=== PATIENT | male | born 1965 | race Caucasian/White ===

== ENCOUNTER 2016-10-25 07:32 | Day surgery (SDC) | payer BC ==
[~2016-10-25 07:32] MED LIST: Buffered Lidocaine 0.9% SYRIN* 5 ML/SYR SYRINGE INTRADERM ONE; Famotidine IV* 10 MG/ML 2 ML (20 mg) IV ONE
[2016-10-25] MEDS ORDERED: Famotidine IV* 10 MG/ML 2 ML (20 mg) ONE ×2 (07:52→08:01)
[2016-10-25] MEDS ORDERED: ceFAZolin 2 GM PREMIX(*) 0 GM/0 ML BAG IVPB ONE (07:52)
[2016-10-25] MEDS ORDERED: ceFAZolin 2 GM PREMIX(*) 2 GM/50 ML BAG IVPB ONE (08:01)
[2016-10-25] MEDS ORDERED: Buffered Lidocaine 0.9% SYRIN* 5 ML/SYR SYRINGE ONE (08:01)
[2016-10-25] MEDS ORDERED: Bupivacaine 0.5% W/EPI SDV* 10 ML VIAL INJ ONE (08:03)
[2016-10-25] MEDS ORDERED: EPINEPHrine AMP 1 MG/ML ONE (08:03)
[2016-10-25] MEDS ORDERED: fentaNYL* 50 MCG/ML 2 ML VIAL (100 MCG VIAL) ONE ×2 (09:17→10:46)
[2016-10-25] MEDS ORDERED: Midazolam* 1 MG/ML 5 ML VIAL (5 MG) ONE (09:17)
[2016-10-25] MEDS ORDERED: DiMENhydriNATE IV* 50 MG/ML VIAL IV PUSH PRN (10:33)
[2016-10-25] MEDS ORDERED: HYDROmorphone* 1 MG/ML 1 ML SYR IV PRN (10:33)
[2016-10-25] MEDS ORDERED: Ketorolac INJ* 30 MG/ML 1 ML VIAL ONE (10:34)
[2016-10-25] MEDS ORDERED: Propofol* 10 MG/ML 20 ML BTL IV PUSH ONE (10:34)
[2016-10-25] MEDS ORDERED: Lidocaine 2% PF * 5 ML VIAL ONE (10:34)
[2016-10-25] MEDS ORDERED: Ondansetron INJ* 2 MG/ML VIAL ONE (10:34)
[2016-10-25] MEDS ORDERED: Dexamethasone IV* 4 MG/ML 1 ML (4 MG) ONE (10:34)
[2016-10-25] MEDS ORDERED: oxyCODONE/Acetamin 5/325 MG* TAB ONE ×2 (11:37→12:29)
[2016-10-25] MEDS: oxyCODONE/Acetamin 5/325 MG* TAB PO PRN ×2 (11:39→12:29)
[2016-10-25 12:43] VITALS: BP 150/98
--- NOTE | 2016-10-26 14:41 | OP ---
OPERATIVE REPORT: DATE OF OPERATION: 10/25/16 DATE OF : 69 SURGEON: Cam Cunningham MD LICENSED RETAIL SUPERVISOR: LISS Ackerman Physician certified first assistant was required throughout the length of the procedure for positioning. ANESTHESIOLOGIST: Kemi Brice MD ANESTHESIA: General anesthesia. PRE-OP DIAGNOSES: 1. Right knee medial meniscus tear, displaced. 2. Right knee medial compartment osteoarthritis, mild. POST-OP DIAGNOSES: 1. Right knee medial meniscus tear, displaced. 2. Right knee medial compartment osteoarthritis, mild. OPERATIVE PROCEDURE: 1. Arthroscopic right knee partial medial meniscectomy. 2. Arthroscopic right knee chondroplasty, medial femoral condyle. 3. Right knee arthroscopic synovectomy, anterior. 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 In June of 2016, his right knee pain worsened significantly, specifically medially, and he also started having concomitant effusions. The patient had mechanical symptoms including catching and locking of the knee as well as effusions for the past 4 months. 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 He also used [employer] ice machine. He took Advil over the counter. He had a cortisone injection in August of 2016, which improved his knee pain for only 1 week. On 10/17/16, Dr. Alisa Stanley aspirated the right knee and removed 85 cc of yellow joint fluid. Prior to the aspiration, he could not flex his knee past 90 degrees of flexion. After the aspiration, while the fluid about the knee had decreased significantly, the patient's catching and locking increased significantly and every time his knee was in 30 degrees of flexion, it would lock for seconds. The patient presented to me already having had an MRI study having been done. My evaluation of the MRI demonstrated a likely displaced flap of medial meniscus into the intercondylar notch posterior to the PCL. I spoke to Radiology and they concurred with my assessment. The patient opted for operative management. We discussed in the office benefits , risks, and potential complications of procedure. I gave my cell phone number. We talked specifically that given his amount of joint space narrowing on x-ray and some degenerative changes in the medial compartment on the MRI, I could not guarantee that his knee would be pain free after the surgery. Given the mechanical symptoms, I did not do a Lyme disease workup or rheumatologic workup, but the patient seemed very interested in testing for Lyme disease when he texted me one day preoperative, so I told him that we would obtain blood for Lyme disease testing intraoperatively. He agreed to that, thought that was a good idea. ANTIBIOSIS: 2 g Ancef IV. IV FLUIDS: 650 cc crystalloid. TOURNIQUET TIME: 29 minutes at 300 mmHg. COMPLICATIONS: None. SPECIMEN: None. IMPLANTS: None. DESCRIPTION OF PROCEDURE: Preoperative written consent was obtained. Operative extremity was marked in preoperative holding. The patient was taken back to the operating room, placed supine on the operating room table. The proximal right thigh was placed in a tourniquet, but was not elevated. The distal thigh was placed in a circumferential thigh joe. The table was elevated and the foot of the table was dropped. Right lower extremity was prepped and draped. A surgical time-out was performed. The Esmarch was applied and the tourniquet was elevated to 300 mmHg. Anterolateral knee arthroscopy portal was established using standard technique. There was a huge release of joint fluid, not surprising, given the patient's large effusion. This was perfectly clear yellow normal-appearing joint fluid. I started diagnostic arthroscope. In the patellofemoral compartment, there was no obvious articular cartilage damage in the patellofemoral compartment. There was, however, much synovitis anteriorly appreciated in this compartment. We then moved down to the medial compartment. Immediately, there was significant damage to the medial femoral condyle, medial tibial plateau, articular cartilage surfaces visible. This rated from grade 2 to grade 4. Looking at the medial meniscus, there were much degenerative changes throughout the posterior body and posterior horn of the medial meniscus. There was significant fraying to the inner surface of the meniscus there. No obvious flap at first. Established an anteromedial knee arthroscopy portal under direct visualization. Introduced a shaver and shaved some frayed edges at the inner surface of the meniscus. Then, probed around the meniscus, specifically about the root. I pulled a large flap of meniscus that had been in the intercondylar notch posterior to the PCL into the medial compartment. I took several photographs of it. Debrided that with arthroscopic shaver. Debrided the frayed edges of intact meniscus posterior horn and body. Never used any biters during this case. Debrided the meniscus minimally back to a stable healthier rim of tissue. Probed superiorly and inferiorly and there were no other displaced fragments of meniscus. I worked through the medial portal and then I worked through the lateral portal. There were grade 2 and 3 cartilage changes throughout the medial femoral condyle. I lightly shaved some of that cartilage just to make sure there was no unstable cartilage present that might become a loose body. There were no very loose lesions. Looking at the medial tibial plateau, there was no need for arthroscopic shaving, although I did notice one very small grade 4 complete lesion in the articular cartilage about the anterior aspect of the medial tibial plateau. I next went to the intercondylar notch. There was a ligamentum mucosum present and some synovitis. I debrided that with the arthroscopic shaver. I debrided some of that prior to doing work in the medial compartment, but I did additional synovectomy at this point, although not overly aggressively. ACL and PCL were intact. I next moved to the lateral compartment and visualized no injury to the lateral meniscus nor to the articular cartilage, lateral femoral condyle, or lateral tibial plateau. I then moved back to the patellofemoral compartment. No significant injury to the articular cartilage present there. There was still a little bit of synovitis encroaching into that compartment and I debrided that lightly with the knee in full extension. I appreciated perhaps some grade 1 changes at the superior aspect of the patella, but no other significant wear in that compartment. Fluid and instruments were removed from the knee. Skin incisions were closed with figure-of-8 stitches using nylon 4-0 suture. Approximately 8 cc of Marcaine, 0.5% with epinephrine was injected about the knee arthroscopy portal subcutaneous. Xeroform, 4x4s, ABD dressing, sterile Webril. Roldan bandage from foot to proximal thigh. Tourniquet was dropped. The patient was awakened and brought to the recovery room. DISPOSITION: The patient will be on aspirin b.i.d. x2 weeks. Percocet as needed for pain control. Physical therapy to start tomorrow. Dressing intact for 3 days and then he can change it, but keep covered for 7 days. The patient will follow up with me in 10 to 14 days postoperatively. SEROLOGIC TESTING: Intraoperatively, I had the anesthesiologist draw blood and that was sent for Lyme, Western blot, and JAQUELIN analysis. We will review the results of that testing at the patient's first postoperative clinic visit. If it is positive, I could potentially start him on antibiotics prior to that visit. [id number]/[facility] #: [id number] BRITTNY
[2016-10-28 01:20] LABS: B garinii/B afzelii PCR Negative (Negative); B mayonii PCR Negative (Negative)
[2016-10-28 13:58] LABS: Lyme Disease IgG Ab WB Negative (Negative)
== END 2016-10-25 12:48 | disposition home or self-care (01) ==
LOC: OR 07:32
PROVIDERS: ATTEND Orthopaedic Surgery
DX: S83.242A Other tear of medial meniscus, current injury, left knee, initial encounter (principal); M17.11 Unilateral primary osteoarthritis, right knee; Z85.46 Personal history of malignant neoplasm of prostate; X50.3XXA Overexertion from repetitive movements, initial encounter; Y93.89 Activity, other specified; Y92.9 Unspecified place or not applicable
CPT/HCPCS: 86617; 86618; 87476; 87798; A9270-GY; J0171; J0690; J1100; J1885; J2250; J2405; J2704; J3010